=== PATIENT | female | born 1960 | race Caucasian/White ===

== ENCOUNTER 2020-10-26 06:43 | Emergency (ER) | payer MEDICAID ==
--- NOTE | 2020-10-26 06:59 | EDM.PDOC ---
ED HPI GENERAL MEDICAL PROBLEM - General Chief Complaint: Abdominal Pain Stated Complaint: ABDOMINAL PAIN Time Seen by Provider: 10/26/20 06:59 Source of Information: Reports: Patient History Limitations: Reports: No Limitations - History of Present Illness INITIAL COMMENTS - FREE TEXT/NARRATIVE: 60-year-old female presents to the ED after awakening around 0600 hrs. this morning with severe diffuse lower abdominal pain which she described as constant. She states was difficult to walk after getting up out of bed she was hunched over. Emptying her bladder did not seem to improve the pain. She rated the pain as a 10 out of 10 at home. Subsequently pain has dissipated a little bit prior to coming into the ED. She rates the pain currently as a 4 out of 10. She does not feel bloated but is distended. Pain does not radiate anywhere. States it is across her lower abdomen mostly suprapubic. No associated nausea or vomiting. She was fine when she went to bed last night. Of note the patient is wearing an event recorder since Tuesday due to abnormal heartbeats detected in the clinic and by the patient with fluttering in her chest the last week or more. Clinically she was in sinus bradycardia at 58/min with very frequent ectopic beats. She will be placed on the monitor. Plan IV D5 normal saline at 150 mils an hour. Zofran 4 mg IV. Dilaudid 0.5 mg IV for pain relief. Urinalysis to be collected. KUB to be done. Routine labs. Only medication the patient is taking his pantoprazole 40 mg daily which is to started last week. Previous abdominal surgeries out of a bladder sling procedure 20 years ago and a hysterectomy with retention of her ovaries. Onset: Today, Sudden Onset Date: 10/26/20 Onset Time: 06:00 Duration: Minutes:, Improving (Currently rates the pain as a 4 out of 10. It was 10 out of 10 when she awoke from sleep.) Location: Reports: Abdomen (Diffuse lower abdominal pain which he described as constant with a mild colicky component.) Quality: Reports: Ache, Sharp, Stabbing Severity: Severe (Colicky component to the pain 10 out of 10 initially. Now 4 out of 10 in the ED.) Improves with: Reports: Other (Has improved over the last hour.) Worsens with: Reports: Movement (Walking made the pain worse.) Context: Denies: Activity, Exercise, Lifting, Sick Contact, Trauma, Other Associated Symptoms: Reports: Loss of Appetite, Shortness of Breath. Denies: No Other Symptoms, Confusion, Chest Pain, Cough, cough w sputum, Diaphoresis, Fever/Chills, Headaches, Malaise, Nausea/Vomiting, Rash, Seizure, Syncope, Weakness Treatments [employer]: Reports: Other (see below) (None.) Lower Abdomen Pain Score (Numeric/FACES): 5 - Related Data Allergies Allergy/AdvReac Type Severity Reaction Status Date / Time No Known Allergies Allergy Verified 10/26/20 06:57 Home Meds: Home Meds Metoprolol Succinate [Toprol XL] 25 mg PO DAILY #30 tab.er 10/26/20 [Rx] Pantoprazole [ProTONIX] 40 mg PO DAILY 10/26/20 [History] Past Medical History - Past Surgical History Female Surgical History: Reports: Hysterectomy (She believes both ovaries were retained.), Other (See Below) (Bladder sling procedure.) ED ROS GENERAL - Review of Systems Review Of Systems: See Below Constitutional: Reports: Malaise, Weakness, Fatigue, Decreased Appetite. Denies: Fever, Chills HEENT: Reports: No Symptoms Respiratory: Reports: Shortness of Breath. Denies: Wheezing, Pleuritic Chest Pain, Cough, Sputum Cardiovascular: Reports: Chest Pain (Central chest discomfort off and on for the last couple of weeks.), Blood Pressure Problem, Lightheadedness, Palpitations (Doctoring in her chest the last couple of weeks.). Denies: Claudication (Has been running lower than normal.), Dyspnea on Exertion, Edema, Orthopnea Endocrine: Reports: Fatigue GI/Abdominal: Reports: Abdominal Pain (See history of present illness.), Constipation (Tends to be constipated with a bowel movement once every 3 to 4 days.), Decreased Appetite. Denies: Difficulty Swallowing, Distension, Hematemesis, Hematochezia, Melena, Mucous in Stool, Nausea, Stool Incontinence, Vomiting, Other : Reports: No Symptoms, Other (Voiding to this morning did not make the abdominal pain any better or worse.) Musculoskeletal: Reports: No Symptoms Skin: Reports: No Symptoms Neurological: Reports: No Symptoms Psychiatric: Reports: No Symptoms Hematologic/Lymphatic: Reports: No Symptoms Immunologic: Reports: No Symptoms ED EXAM, GI/ABD - Physical Exam Exam: See Below Exam Limited By: No Limitations General Appearance: Alert, WD/WN, No Apparent Distress, Other (Temperature is 36.0. Heart rate 78 and sinus. Respiratory to 16. BP 99/81 with reported O2 sats of 94% room air.) Eyes: Bilateral: Normal Appearance (No scleral icterus or blepharal pallor.) Throat/Mouth: Normal Inspection, Normal Lips, Normal Teeth, Normal Oropharynx Head: Atraumatic, Normocephalic Neck: Normal Inspection, Supple, Non-Tender, Full Range of Motion. No: Carotid Bruit, Lymphadenopathy (L), Lymphadenopathy (R), Thyromegaly Respiratory/Chest: No Respiratory Distress, Lungs Clear, Normal Breath Sounds, No Accessory Muscle Use, Chest Non-Tender Cardiovascular: Normal Peripheral Pulses, No Edema, No Gallop, No Murmur, No Rub, Irregularly Irregular (Frequent ectopic beats every second or third beat is an ectopic beat and the monitor reveals these to be PVCs appear to be unifocal.). No: Bradycardia, Tachycardia GI/Abdominal Exam: Soft, No Organomegaly, No Abnormal Bruit, No Mass, Pelvis Stable, Tender (Mildly tender suprapubically.), Abnormal Bowel Sounds (Bowel sounds are hyperactive throughout all 4 quadrants of the abdomen. Mildly distended and tympany to percussion.) Back Exam: Normal Inspection, Full Range of Motion. No: CVA Tenderness (L), CVA Tenderness (R) Extremities: Normal Inspection, Normal Range of Motion, Non-Tender, No Pedal Edema Neurological: Alert, Oriented, CN II-XII Intact, Normal Cognition Psychiatric: Normal Affect, Normal Mood Skin Exam: Warm, Dry, Intact, Normal Color, No Rash #1 Interpretation EKG Date: 10/26/20 Time: 07:16 Rhythm: NSR Rate (Beats/Min): 75 (Frequent unifocal PVCs) [place]: Normal P-Wave: Enlarged (Left atrial hypertrophy) QRS: Other (RSR prime wave in V1 and V2 consider right ventricular hypertrophy versus normal variant.) ST-T: Depressed (ST segment depression noted in leads II, III and aVF. Consider inferior wall ischemia) QT: Normal EKG Interpretation Comments: Abnormal ECG Course - Vital Signs Last Recorded V/S: Last Vital Signs Temp 36.0 C L 10/26/20 06:51 Pulse 78 10/26/20 08:53 Resp 18 10/26/20 08:53 BP 134/87 10/26/20 08:53 Pulse Ox 100 10/26/20 08:53 - Orders/Labs/Meds Labs: Laboratory Tests 10/26/20 10/26/20 10/26/20 Range/Units 07:00 07:00 07:00 WBC 3.50 L (3.98-10.04) K/mm3 RBC 4.68 (3.98-5.22) M/mm3 Hgb 14.4 (11.2-15.7) gm/dl Hct 43.3 (34.1-44.9) % MCV 92.5 (79.4-94.8) fl MCH 30.8 (25.6-32.2) pg MCHC 33.3 (32.2-35.5) g/dl RDW Std Deviation 42.9 (36.4-46.3) fL Plt Count 143 L (182-369) K/mm3 MPV 11.9 (9.4-12.3) fl Neut % (Auto) 38.3 (34.0-71.1) % Lymph % (Auto) 49.7 (19.3-51.7) % [facility] % (Auto) 8.0 (4.7-12.5) % Eos % (Auto) 3.7 (0.7-5.8) Baso % (Auto) 0.3 (0.1-1.2) % Neut # (Auto) 1.34 L (1.56-6.13) K/mm3 Lymph # (Auto) 1.74 (1.18-3.74) K/mm3 [facility] # (Auto) 0.28 (0.24-0.36) K/mm3 Eos # (Auto) 0.13 (0.04-0.36) K/mm3 Baso # (Auto) 0.01 (0.01-0.08) K/mm3 Sodium 143 (136-145) mEq/L Potassium 3.8 (3.5-5.1) mEq/L Chloride 105 (98-107) mEq/L Carbon Dioxide 30 (21-32) mEq/L Anion Gap 11.8 (5-15) BUN 13 (7-18) mg/dL Creatinine 0.8 (0.55-1.02) mg/dL Est Cr Clr Drug Dosing TNP Estimated GFR (MDRD) > 60 (>60) mL/min BUN/Creatinine Ratio 16.3 (14-18) Glucose 104 H (70-99) mg/dL Calcium 9.0 (8.5-10.1) mg/dL Magnesium 2.2 (1.8-2.4) mg/dL Total Bilirubin 0.5 (0.2-1.0) mg/dL AST 17 (15-37) U/L ALT 28 (14-59) U/L Alkaline Phosphatase 57 (46-116) U/L CK-MB (CK-2) (0-3.6) ng/ml Troponin I < 0.017 (0.00-0.056) ng/mL C-Reactive Protein <0.2 (<1.0) mg/dL NT-Pro-B Natriuret Pep 41 (0-125) pg/mL Total Protein 7.1 (6.4-8.2) g/dl Albumin 4.0 (3.4-5.0) g/dl Globulin 3.1 gm/dL Albumin/Globulin Ratio 1.3 (1-2) TSH 3rd Generation 3.319 (0.358-3.74) uIU/mL Urine Color (Yellow) Urine Appearance (Clear) Urine pH (5.0-8.0) Ur Specific [place] (1.005-1.030) Urine Protein (Negative) Urine Glucose (UA) (Negative) Urine Ketones (Negative) Urine Occult Blood (Negative) Urine Nitrite (Negative) Urine Bilirubin (Negative) Urine Urobilinogen (0.2-1.0) Ur Leukocyte Esterase (Negative) Urine RBC (0-5) /hpf Urine WBC (0-5) /hpf Ur Squamous Epith Cells (0-5) /hpf Urine Bacteria (FEW) /hpf Urine Mucus (FEW) /hpf 10/26/20 10/26/20 Range/Units 07:00 08:10 WBC (3.98-10.04) K/mm3 RBC (3.98-5.22) M/mm3 Hgb (11.2-15.7) gm/dl Hct (34.1-44.9) % MCV (79.4-94.8) fl MCH (25.6-32.2) pg MCHC (32.2-35.5) g/dl RDW Std Deviation (36.4-46.3) fL Plt Count (182-369) K/mm3 MPV (9.4-12.3) fl Neut % (Auto) (34.0-71.1) % Lymph % (Auto) (19.3-51.7) % [facility] % (Auto) (4.7-12.5) % Eos % (Auto) (0.7-5.8) Baso % (Auto) (0.1-1.2) % Neut # (Auto) (1.56-6.13) K/mm3 Lymph # (Auto) (1.18-3.74) K/mm3 [facility] # (Auto) (0.24-0.36) K/mm3 Eos # (Auto) (0.04-0.36) K/mm3 Baso # (Auto) (0.01-0.08) K/mm3 Sodium (136-145) mEq/L Potassium (3.5-5.1) mEq/L Chloride (98-107) mEq/L Carbon Dioxide (21-32) mEq/L Anion Gap (5-15) BUN (7-18) mg/dL Creatinine (0.55-1.02) mg/dL Est Cr Clr Drug Dosing Estimated GFR (MDRD) (>60) mL/min BUN/Creatinine Ratio (14-18) Glucose (70-99) mg/dL Calcium (8.5-10.1) mg/dL Magnesium (1.8-2.4) mg/dL Total Bilirubin (0.2-1.0) mg/dL AST (15-37) U/L ALT (14-59) U/L Alkaline Phosphatase (46-116) U/L CK-MB (CK-2) 0.6 (0-3.6) ng/ml Troponin I (0.00-0.056) ng/mL C-Reactive Protein (<1.0) mg/dL NT-Pro-B Natriuret Pep (0-125) pg/mL Total Protein (6.4-8.2) g/dl Albumin (3.4-5.0) g/dl Globulin gm/dL Albumin/Globulin Ratio (1-2) TSH 3rd Generation (0.358-3.74) uIU/mL Urine Color Yellow (Yellow) Urine Appearance Clear (Clear) Urine pH 7.0 (5.0-8.0) Ur Specific [place] 1.020 (1.005-1.030) Urine Protein Negative (Negative) Urine Glucose (UA) Negative (Negative) Urine Ketones Negative (Negative) Urine Occult Blood Negative (Negative) Urine Nitrite Negative (Negative) Urine Bilirubin Negative (Negative) Urine Urobilinogen 0.2 (0.2-1.0) Ur Leukocyte Esterase Trace H (Negative) Urine RBC 0-5 (0-5) /hpf Urine WBC 0-5 (0-5) /hpf Ur Squamous Epith Cells 0-5 (0-5) /hpf Urine Bacteria Few (FEW) /hpf Urine Mucus Moderate H (FEW) /hpf Meds: Medications Discontinued Medications Generic Name Dose Route Start Last Admin Trade Name Freq PRN Reason Stop Dose Admin Hydromorphone HCl 0.5 mg 10/26/20 07:10 10/26/20 07:41 Hydromorphone 0.5 Mg/0.5 Ml Syringe IVPUSH 10/26/20 07:11 0.5 mg ONETIME ONE Administration Dextrose/Sodium Chloride 1,000 mls @ 150 mls/hr 10/26/20 07:15 10/26/20 07:41 Dextrose 5%-Normal Saline IV 150 mls/hr ASDIRECTED SENA Administration Magnesium Citrate 296 ml 10/26/20 08:58 10/26/20 09:23 Magnesium Citrate Solution 296 Ml Bottle PO 10/26/20 08:59 296 ml ONETIME ONE Administration Metoprolol Succinate 25 mg 10/26/20 08:19 10/26/20 08:34 Metoprolol Succinate 25 Mg Tab.Er PO 10/26/20 08:20 25 mg ONETIME ONE Administration Ondansetron HCl 4 mg 10/26/20 07:10 10/26/20 07:42 Ondansetron 4 Mg/2 Ml Sdv IVPUSH 10/26/20 07:11 4 mg ONETIME ONE Administration - Radiology Interpretation Free Text/Narrative:: 60-year-old female presents to the ED with diffuse lower abdominal pain that awoke her from sleep at around 0600 hrs. Pain did not improve after emptying her bladder. Walking was difficult. Pain was a 10 out of 10 at home with no radiation to her back. It has now slowly improved to rated as 4 out of 10. Exam reveals mild tympany throughout the abdomen. Bowel sounds are extremely active in all 4 quadrants. Palpable left hemicolon. Patient is on a Holter monitor due to feeling palpitations and chest pain rating up into her neck and throat the last week or so. Exam reveals her to have very frequent PVCs which appear to be unifocal. They are coming every third or fourth beat. ECG shows ST segment depression in leads II, III and aVF combined with inferior wall ischemia. Cardiac work-up will be done as well as routine labs. This includes a urinalysis. An x-ray of the abdomen to be obtained. Patient was started on IV D5 normal saline at 150 mils per hour. She was given Zofran 4 mg IV with Dilaudid 0.5 mg IV. - Re-Assessments/Exams Free Text/Narrative Re-Assessment/Exam: 10/26/20 07:39 patient continues to have frequent PVCs at this time in a bigeminal fashion. 10/26/20 08:11 KUB reveals significant constipation with almost the entire colon filled with stool particularly the rectal vault. I have discussed the findings with the patient. Plan will be to proceed with a Fleet enema to provide initial relief of constipation. She will be sent home with magnesium citrate or Citroma to take 8 ounces later this morning with 6 ounces of juice to provide bowel cleanse. In regards to her frequent PVCs and symptoms with pressure in her chest and shortness of breath she will you may well benefit from a low-dose of metoprolol succinate once daily. This will be dependent on heart rate as she tends have a heart rate in the mid 60s and a blood pressure anywhere from 99-134 systolic.Will start her on Metoprololol succinate 25mg once daily in the am. 10/26/20 08:28 Labs reveal a mild leukopenia with a white count of 3.50 with 38.3% neutrophils and 50% lymphocytes suggesting a underlying viral infection. Hemoglobin is 14.4 with a platelet count low normal at 143,000. Sodium 143 with a potassium of 3.8. Chloride 105 with a bicarb of 30. Anion gap is 11.8. BUN is 13 with a creatinine of 0.8 and a GFR greater than 60. Glucose is 104. Calcium is 9.0. Magnesium is 2.2. Liver function normal. CK-MB fraction is 0.6 with a troponin I of less than 0.017. C-reactive protein less than 0.2. BNP 41. Total protein is 7.1 with an albumin fraction of 4.0. TSH is 3.32--normal. Urinalysis came back showing a trace of leukocyte esterase. Micro is pending 10/26/20 08:55 nurses report she did not get much hard stool out , only colored water. She was not able to retain a good deal of the enema. Therefore I will not pursue a soapsuds enema. I will simply place her on magnesium citrate taking 10 ounces today to get relief of constipation. Will advise MiraLAX p owder 17 g once daily prevent similar occurrence. Departure - Departure Time of Disposition: 08:55 Disposition: Home, Self-Care 01 Condition: Fair Clinical Impression: Constipation by delayed colonic transit, Frequent unifocal PVCs Abdominal pain Qualifiers: Abdominal location: lower abdomen, unspecified Qualified Code(s): R10.30 - Lower abdominal pain, unspecified - Discharge Information *PRESCRIPTION DRUG MONITORING PROGRAM REVIEWED*: Not Applicable *COPY OF PRESCRIPTION DRUG MONITORING REPORT IN PATIENT EMILE: Not Applicable Prescriptions: Metoprolol Succinate [Toprol XL] 25 mg PO DAILY #30 tab.er Instructions: Constipation, Adult Referrals: Jaleesa Hoffman MD [Primary Care Provider] - Forms: ED Department Discharge Additional Instructions: Evaluation in the emergency room today in regards to diffuse lower abdominal pain that was almost incapacitating that woke her up from sleep around 0600 hrs. this morning. Exam revealed bowel sounds very active in all 4 quadrants compatible with bowel that is working hard against an obstruction. X-ray of the abdomen reveals the obstruction is stool almost completely filling the entire 4 and half feet of colon. Minimal results obtained in the ED with a Fleet enema. Therefore take magnesium citrate 10 ounces when you get home mixed with 6 to 7 ounces of juice of choice. This will start to work in 1 to 2 hours and bowels are usually move 3-4 times often ending and some degree of diarrhea. I would suggest starting MiraLAX powder 17 g or 1 scoop daily to prevent constipation from occurring. This has no taste and does not cause any cramping or make the bowel dependent on a laxative such as other medication to do. Second problem was very frequent premature ventricular contractions coming from the bottom of the heart. They are coming almost every second or third beat at times while in the ED and are causing her palpitations and chest discomfort. It is therefore my suggestion that you take metoprolol succinate 25 mg once daily at bedtime. Your first tablet was given in the ED this morning but after picking the medication up from the pharmacy tomorrow take 1 tablet every night at bedtime. The medication will lower your heart rate and also your blood pressure. Therefore only time will tell whether you can tolerate this medication. It should start to help reduce the skips or extra beats in your heart within the next 2 -3 days. Sepsis Event Note (ED) - Evaluation Sepsis Screening Result: No Definite Risk - Focused Exam Vital Signs: Vital Signs Pulse Pulse Resp BP BP Pulse Ox 10/26/20 08:53 78 18 134/87 100 10/26/20 08:34 63 120/87
[2020-10-26] MEDS ORDERED: HYDROmorphone 0.5 MG/0.5 ML Syringe IVPUSH ONE (07:10)
[2020-10-26] MEDS ORDERED: Ondansetron 4 MG/2 ML SDV IVPUSH ONE (07:10)
[2020-10-26] MEDS ORDERED: Dextrose 5%-0.9% NaCl 1,000 ML IV SCH (07:15)
[2020-10-26] MEDS ORDERED: Metoprolol Succinate 25 MG Tab.ER PO ONE (08:19)
[2020-10-26] MEDS ORDERED: Magnesium Citrate Solution 296 ML Bottle PO ONE (08:58)
--- NOTE | 2020-10-26 10:33 | CR ---
Abdomen: Supine view of the abdomen was obtained. Comparison: Prior abdominal imaging is available. Surgical clips appear to be present within the upper right abdomen presumably from previous cholecystectomy. Mild increased stool is noted throughout the colon. Bowel gas pattern is otherwise unremarkable. Bony structures are within normal limits. Impression: 1. Increased stool within the colon. 2. Possible previous cholecystectomy. Diagnostic code #2
== END 2020-10-26 09:36 | disposition home or self-care (01) ==
LOC: JD.ED 06:43
DX: K59.01 Slow transit constipation (principal); I49.3 Ventricular premature depolarization; Z79.899 Other long term (current) drug therapy
CPT/HCPCS: 36415; 74018; 80053; 81001; 82553; 83735; 83880; 84443; 84484; 85025; 86140; 93005; 96374; 96375; 99284; A9270; J1170; J2405; J7042; 93010

== ENCOUNTER 2020-10-28 15:43 | Emergency (ER) | payer MEDICAID ==
[2020-10-28] MEDS ORDERED: Ondansetron 4 MG/2 ML SDV IVPUSH ONE (16:25)
[2020-10-28] MEDS ORDERED: Sodium Chloride 0.9% 10 ML Syringe FLUSH PRN (16:26)
[2020-10-28] MEDS ORDERED: Sodium Chloride 0.9% 1,000 ML IV SCH (16:30)
--- NOTE | 2020-10-28 16:48 | EDM.PDOC ---
ED HPI GENERAL MEDICAL PROBLEM - General Chief Complaint: Abdominal Pain Stated Complaint: ABDOMINAL PAIN Time Seen by Provider: 10/28/20 15:52 Source of Information: Reports: Patient, Old Records (Previous visit from Tuesday.), RN Notes Reviewed History Limitations: Reports: No Limitations - History of Present Illness INITIAL COMMENTS - FREE TEXT/NARRATIVE: Patient is a 60-year-old female who presents to the ER for her ongoing abdominal pain. She was evaluated in this ER on Tuesday, and was diagnosed with severe constipation. She was sent home with a bottle of magnesium citrate, she did take this as directed had a few bowel movements yesterday, and 1 this morning however she is still having abdominal pain. She notes that this seems to kind of radiate up into her chest, her generalized abdomen, and just feels tired and lethargic. She is also complaining of some low pelvic pain, that seems to radiate down her legs and into her back. She was also found to have frequent PVCs and was started on metoprolol for this, and states that she has been taking this as prescribed and it seems to be helping. As observed she has not had any PVCs while I was interviewing her for her history. Notes that she does have a regular care provider, that started her on GERD medications on Tuesday and she states that the upper abdomen/chest discomfort is getting better after starting that medication. She was sent home with a Holter monitor, and is also scheduled for an echocardiogram on November 05. She has had no fevers or chills, notes that she was sweaty earlier but did take her temperature and she was not febrile. Having no nausea/vomiting/diarrhea. She denies any abdomen surgeries other than a hysterectomy and still retains her ovaries. Also states that she had a blad alma suspension performed. Patient is concerned because of the ongoing pain, and this now being into her low pelvis that this could be something related to her ovaries. Bilateral Lower Pelvic Pain Score (Numeric/FACES): 10 - Related Data Allergies Allergy/AdvReac Type Severity Reaction Status Date / Time No Known Allergies Allergy Verified 10/28/20 16:14 Home Meds: Home Meds Metoprolol Succinate [Toprol XL] 25 mg PO DAILY #30 tab.er 10/26/20 [Rx] Pantoprazole [ProTONIX] 40 mg PO DAILY 10/26/20 [History] Dicyclomine [Bentyl] 20 mg PO TID #15 tab 10/28/20 [Rx] Past Medical History - Past Health History Medical/Surgical History: Denies Medical/Surgical History Cardiovascular History: Reports: Other (See Below) Other Cardiovascular History: palpitation Gastrointestinal History: Reports: GERD - Past Surgical History Female Surgical History: Reports: Hysterectomy, Other (See Below) Other Female Surgeries/Procedures: bladder sling Social & Family History - Family History Neurological: Reports: Dementia, Parkinson's Oncologic: Reports: Breast - Tobacco Use Tobacco Use Status *Q: Never Tobacco User - Caffeine Use Caffeine Use: Reports: Coffee, Soda - Recreational Drug Use Recreational Drug Use: No ED ROS GENERAL - Review of Systems Review Of Systems: Comprehensive ROS is negative, except as noted in HPI. ED EXAM, GI/ABD - Physical Exam Exam: See Below Exam Limited By: No Limitations General Appearance: Alert, WD/WN, No Apparent Distress Respiratory/Chest: No Respiratory Distress, Lungs Clear, Normal Breath Sounds, No Accessory Muscle Use, Chest Non-Tender Cardiovascular: Normal Peripheral Pulses, Regular Rate, Rhythm, No Edema GI/Abdominal Exam: Normal Bowel Sounds, Soft, No Distention, No Mass, Tender (generalized, but seems to be worse in low abd/pelvic region, also tender over epigastrium) Extremities: Normal Inspection, Normal Capillary Refill Neurological: Alert, Oriented, Normal Cognition, No Motor/Sensory Deficits Psychiatric: Normal Affect, Normal Mood Skin Exam: Warm, Dry, Intact, Normal Color, No Rash Course - Vital Signs Last Recorded V/S: Last Vital Signs Temp Pulse 67 10/28/20 16:09 Resp 15 10/28/20 16:09 BP 139/84 10/28/20 16:09 Pulse Ox 99 10/28/20 16:09 - Orders/Labs/Meds Orders: Active Orders 24 hr Category Date Time Status Peripheral IV Care [RC] . DIRECTED Care 10/28/20 16:27 Active Sodium Chloride 0.9% [Normal Saline] 1,000 ml Med 10/28/20 16:30 Active IV ASDIRECTED Sodium Chloride 0.9% [Saline Flush] Med 10/28/20 18:15 Active 10 ml FLUSH ASDIRECTED Sodium Chloride 0.9% [Saline Flush] Med 10/28/20 16:26 Active 10 ml FLUSH ASDIRECTED PRN Peripheral IV Insertion Adult [OM.PC] Routine Oth 10/28/20 16:26 Ordered Medication Orders Sodium Chloride (Normal Saline) 1,000 mls @ 999 mls/hr IV ASDIRECTED SENA Last Admin: 10/28/20 16:39 Dose: 999 mls/hr Documented by: VERA Sodium Chloride (Sodium Chloride 0.9% 10 Ml Syringe) 10 ml FLUSH ASDIRECTED PRN PRN Reason: Keep Vein Open Last Admin: 10/28/20 16:38 Dose: 10 ml Documented by: VERA Sodium Chloride (Sodium Chloride 0.9% 10 Ml Syringe) 10 ml FLUSH ASDIRECTED SENA Last Admin: 10/28/20 18:24 Dose: 10 ml Documented by: RONDA Labs: Laboratory Tests 10/28/20 10/28/20 10/28/20 Range/Units 16:30 16:30 17:20 WBC 4.79 (3.98-10.04) K/mm3 RBC 4.26 (3.98-5.22) M/mm3 Hgb 13.2 (11.2-15.7) gm/dl Hct 39.5 (34.1-44.9) % MCV 92.7 (79.4-94.8) fl MCH 31.0 (25.6-32.2) pg MCHC 33.4 (32.2-35.5) g/dl RDW Std Deviation 42.1 (36.4-46.3) fL Plt Count 131 L (182-369) K/mm3 MPV 12.0 (9.4-12.3) fl Neut % (Auto) 61.1 (34.0-71.1) % Lymph % (Auto) 30.7 (19.3-51.7) % [place] % (Auto) 6.5 (4.7-12.5) % Eos % (Auto) 1.3 (0.7-5.8) Baso % (Auto) 0.2 (0.1-1.2) % Neut # (Auto) 2.93 (1.56-6.13) K/mm3 Lymph # (Auto) 1.47 (1.18-3.74) K/mm3 [place] # (Auto) 0.31 (0.24-0.36) K/mm3 Eos # (Auto) 0.06 (0.04-0.36) K/mm3 Baso # (Auto) 0.01 (0.01-0.08) K/mm3 Sodium 142 (136-145) mEq/L Potassium 4.0 (3.5-5.1) mEq/L Chloride 105 (98-107) mEq/L Carbon Dioxide 29 (21-32) mEq/L Anion Gap 12.0 (5-15) BUN 9 (7-18) mg/dL Creatinine 0.7 (0.55-1.02) mg/dL Est Cr Clr Drug Dosing 83.11 mL/min Estimated GFR (MDRD) > 60 (>60) mL/min BUN/Creatinine Ratio 12.9 L (14-18) Glucose 96 (70-99) mg/dL Calcium 8.8 (8.5-10.1) mg/dL Total Bilirubin 0.4 (0.2-1.0) mg/dL AST 14 L (15-37) U/L ALT 26 (14-59) U/L Alkaline Phosphatase 54 (46-116) U/L Total Protein 7.1 (6.4-8.2) g/dl Albumin 4.1 (3.4-5.0) g/dl Globulin 3.0 gm/dL Albumin/Globulin Ratio 1.4 (1-2) Lipase 149 (73-393) U/L Urine Color Yellow (Yellow) Urine Appearance Clear (Clear) Urine pH 7.0 (5.0-8.0) Ur Specific Indian 1.015 (1.005-1.030) Urine Protein Negative (Negative) Urine Glucose (UA) Negative (Negative) Urine Ketones Negative (Negative) Urine Occult Blood Negative (Negative) Urine Nitrite Negative (Negative) Urine Bilirubin Negative (Negative) Urine Urobilinogen 0.2 (0.2-1.0) Ur Leukocyte Esterase Trace H (Negative) Urine RBC 0-5 (0-5) /hpf Urine WBC 0-5 (0-5) /hpf Ur Squamous Epith Cells 0-5 (0-5) /hpf Urine Bacteria Moderate H (FEW) /hpf Urine Mucus Few (FEW) /hpf Meds: Medications Generic Name Dose Route Start Last Admin Trade Name Freq PRN Reason Stop Dose Admin Sodium Chloride 1,000 mls @ 999 mls/hr 10/28/20 16:30 10/28/20 16:39 Normal Saline IV 999 mls/hr ASDIRECTED SENA Administration Sodium Chloride 10 ml 10/28/20 16:26 10/28/20 16:38 Sodium Chloride 0.9% 10 Ml Syringe FLUSH 10 ml ASDIRECTED PRN Administration Keep Vein Open Sodium Chloride 10 ml 10/28/20 18:15 10/28/20 18:24 Sodium Chloride 0.9% 10 Ml Syringe FLUSH 10 ml ASDIRECTED SENA Administration Discontinued Medications Generic Name Dose Route Start Last Admin Trade Name Chris PRN Reason Stop Dose Admin Diatrizoate Meglum/Diatrizoate Sod 120 ml 10/28/20 18:14 10/28/20 18:23 Diatrizoate Meglumine/Diatrizoate Sodium 37% 120 Ml Bottle PO 10/28/20 18:15 45 ml ONETIME ONE Administration Iopamidol 100 ml 10/28/20 18:14 10/28/20 18:23 Iopamidol 612 Mg/Ml 100 Ml Bottle IVPUSH 10/28/20 18:15 100 ml ONETIME ONE Administration Ketorolac Tromethamine 30 mg 10/28/20 19:04 Ketorolac 30 Mg/Ml Sdv IVPUSH 10/28/20 19:05 ONETIME ONE Ondansetron HCl 4 mg 10/28/20 16:25 10/28/20 16:36 Ondansetron 4 Mg/2 Ml Sdv IVPUSH 10/28/20 16:26 4 mg ONETIME ONE Administration - Re-Assessments/Exams Free Text/Narrative Re-Assessment/Exam: 10/28/20 16:48 Patient presents to the ER for ongoing abdomen pain we will repeat labs get IV started and do a CT for further evaluation. 10/28/20 19:05 Laboratory evaluation demonstrates no focal abnormalities. CT did demonstrate one calcified gallstone within the gallbladder. To minimal cyst within the right ovary believed to be within normal limits and measuring up to 2 cm. And mild increased stool within the colon. I did go over all of these findings with the patient, states that she is having a slight generalized headache, still having some generalized abdominal pain. I have ordered 30 mg IV Toradol for this. We will trial her on dicyclomine, the oral contrast should provide a laxative type effect, she has not started stool softeners, and I did recommend that she does start these. She verbalized understanding. I will have her follow-up with a general surgeon for the gallbladder issue and her [facility] for the ovarian cyst issues. Departure - Departure Time of Disposition: 19:06 Disposition: Home, Self-Care 01 Condition: Good Clinical Impression: Constipation Qualifiers: Constipation type: other constipation type Qualified Code(s): K59.09 - Other constipation Ovarian cyst Qualifiers: Laterality: right Qualified Code(s): N83.201 - Unspecified ovarian cyst, right side Gallstone Qualifiers: Cholecystitis presence: without cholecystitis Biliary obstruction: without biliary obstruction Qualified Code(s): K80.20 - Calculus of gallbladder without cholecystitis without obstruction - Discharge Information *PRESCRIPTION DRUG MONITORING PROGRAM REVIEWED*: No *COPY OF PRESCRIPTION DRUG MONITORING REPORT IN PATIENT EMILE: No Prescriptions: Dicyclomine [Bentyl] 20 mg PO TID #15 tab Instructions: Constipation, Adult, [id number], Cholelithiasis, [id number], Ovarian Cyst, [id number] Forms: ED Department Discharge Additional Instructions: You were evaluated in the ER today for your generalized abdomen pain. Repeat lab work demonstrated no focal abnormalities, you did have a CT performed at today's visit which revealed a single gallstone within your gallbladder, 2 small ovarian cyst on your right ovary, and constipation once again. The oral contrast that you received at today's visit should provide somewhat of a laxative effect, you may repeat the bottle of magnesium citrate, you can get this at any pharmacy or local retailer. Highly and strongly recommend you start a stool softener like Dulcolax, Colace, or MiraLAX, and increase your oral fluid hydration to help relieve the constipation. You have been given a prescription for dicyclomine, which is for abdomen cramping you may take 1 tablet up to 3 times daily for abdomen cramping. This medication was electronically sent to the [facility] located near [facility]. As for the gallstone, you should follow up with general surgery, for further evaluation you can call our clinic at [phone] and obtain an appoint with Dr. Grider for further evaluation. As for the ovarian cyst you will need to follow-up with your [facility] of choice, again if you do not have an OB provider, our clinic number [phone], and the [facility] number is [phone]. You may also use Tylenol or ibuprofen every 6 hours as needed for further pain or discomfort. Please return to the ER at any time if symptoms change or worsen. Sepsis Event Note (ED) - Evaluation Sepsis Screening Result: No Definite Risk - Focused Exam Vital Signs: Vital Signs Pulse Resp BP Pulse Ox 10/28/20 16:09 67 15 139/84 99 - My Orders Last 24 Hours: My Active Orders 10/28/20 16:26 Sodium Chloride 0.9% [Saline Flush] 10 ml FLUSH ASDIRECTED PRN Peripheral IV Insertion Adult [OM.PC] Routine 10/28/20 16:27 Peripheral IV Care [RC] . DIRECTED 10/28/20 16:30 Sodium Chloride 0.9% [Normal Saline] 1,000 ml IV ASDIRECTED 10/28/20 18:15 Sodium Chloride 0.9% [Saline Flush] 10 ml FLUSH ASDIRECTED - Assessment/Plan Last 24 Hours: My Active Orders 10/28/20 16:26 Sodium Chloride 0.9% [Saline Flush] 10 ml FLUSH ASDIRECTED PRN Peripheral IV Insertion Adult [OM.PC] Routine 10/28/20 16:27 Peripheral IV Care [RC] . DIRECTED 10/28/20 16:30 Sodium Chloride 0.9% [Normal Saline] 1,000 ml IV ASDIRECTED 10/28/20 18:15 Sodium Chloride 0.9% [Saline Flush] 10 ml FLUSH ASDIRECTED
[2020-10-28] MEDS ORDERED: Iopamidol 612 MG/ML 100 ML Bottle IVPUSH ONE (18:14)
[2020-10-28] MEDS ORDERED: Diatrizoate Meglumine/Diatrizoate Sodium 37% 120 ML Bottle PO ONE (18:14)
[2020-10-28] MEDS ORDERED: Sodium Chloride 0.9% 10 ML Syringe FLUSH SCH (18:15)
--- NOTE | 2020-10-28 18:48 | CT ---
CT abdomen and pelvis Technique: Multiple axial sections were obtained from above the dome of the diaphragm inferiorly through the pubic symphysis. Intravenous and oral contrast was utilized. Delayed images were also obtained through the bladder. Reconstructed coronal and sagittal images were obtained. Comparison: Prior abdominal x-ray performed earlier on the same day (7:51 AM). Findings: Bilateral breast prosthesis are partially seen. Visualized lung bases show nothing acute. Liver shows no focal parenchymal abnormality. Spleen size is normal. Calcified gallstone is seen within the gallbladder. Adrenal glands show no nodule. Pancreas shows no abnormality. Kidneys show symmetric contrast enhancement. No hydronephrosis or mass is seen. Abdominal aorta shows atherosclerotic calcification with no aneurysm. No retroperitoneal adenopathy is noted. Appendix is not definitely visualized. Mild increased stool is seen within the colon. Two small right ovarian cysts are noted measuring up to 2.0 cm which are felt to be incidental. No pelvic mass or adenopathy is seen. Delayed images show contrast within the distal ureters and within the bladder. Bone window settings were reviewed which show minimal scattered degenerative change. No acute osseous abnormality is appreciated. Impression: 1. Mild increased stool within the colon. 2. Two minimal cysts within the right ovary believed to be within normal limits measuring up to 2.0 cm. 3. Single small calcified gallstone within the gallbladder. 4. No additional abnormality is seen. Diagnostic code #2
[2020-10-28] MEDS ORDERED: Ketorolac 30 MG/ML SDV IVPUSH ONE (19:04)
== END 2020-10-28 19:30 | disposition home or self-care (01) ==
LOC: JD.ED 15:43
DX: K80.20 Calculus of gallbladder without cholecystitis without obstruction (principal); K59.09 Other constipation; N83.201 Unspecified ovarian cyst, right side; K21.9 Gastro-esophageal reflux disease without esophagitis; Z79.899 Other long term (current) drug therapy
CPT/HCPCS: 36415; 74177; 80053; 81001; 83690; 85025; 96374; 96375; 99284; J1885; J2405; J7030; Q9963; Q9967

== ENCOUNTER 2020-10-31 12:27 | Emergency (ER) | payer MEDICAID ==
--- NOTE | 2020-10-31 13:13 | EDM.PDOC ---
ED HPI GENERAL MEDICAL PROBLEM - General Chief Complaint: Abdominal Pain Stated Complaint: GERD Time Seen by Provider: 10/31/20 12:50 Source of Information: Reports: Patient History Limitations: Reports: No Limitations - History of Present Illness INITIAL COMMENTS - FREE TEXT/NARRATIVE: 60-year-old female presents to the ED with increased trouble swallowing. She has been aware of heartburn and reflux for many years but worse this last several weeks. She was started on pantoprazole 40 mg daily about 10 days ago. At present she is having trouble even swallowing water. She is aware of recurrent spasms of her esophagus. She does not believe that any pill got stuck in her to call us pill esophagitis. She does not eat meat and therefore no unlikely to have a fishbone or toothpick or anything irritating her food pipe. She is aware pressure discomfort even up into the sternal notch and anterior throat. There is also a component of pleuritic chest pain when she breathes deeply. She has been complaining of retrosternal chest pressure discomfort for the last week to 10 days. We worked her up cardiac sanchez twice and no cardiac issues were identified other than frequent PVCs. She was placed on metoprolol succinate 25 mg daily which is worked well to bring the PVCs under control. She is no longer aware of them. She did take 1 Pepcid yesterday with transient imp rovement in her symptoms. Onset: Gradual Onset Date: 10/23/20 (For night increased heartburn and perhaps mild reflux present for the last week to 10 days. Seems to be worsening in spite of using Protonix daily.) Duration: Day(s):, Getting Worse, Waxing/Waning Location: Reports: Chest (Present most of the day. Central chest discomfort with radiation up into her throat neck.) Quality: Reports: Other (Spastic type pain when attempts to swallow but constant pain in her retrosternal chest rating up into her suprasternal area of her anterior throat.) Severity: Severe Improves with: Reports: None Worsens with: Reports: Other (Any attempt to swallow even water) Context: Denies: Activity ( makes it hurt.), Exercise, Lifting, Sick Contact, Trauma, Other Associated Symptoms: Reports: Other (Deep breathing will cause a pleuritic type pain that seems to originate from the central chest and radiate outwards.). Denies: No Other Symptoms, Confusion, Chest Pain, Cough, cough w sputum, Diaphoresis, Fever/Chills, Headaches, Loss of Appetite, Malaise, Nausea/Vomiting, Rash, Seizure, Shortness of Breath, Syncope, Weakness Treatments [employer]: Reports: Other (see below) (Pepcid 20 mg once daily starting yesterday.) - Related Data Allergies Allergy/AdvReac Type Severity Reaction Status Date / Time No Known Allergies Allergy Verified 10/31/20 12:36 Home Meds: Home Meds Metoprolol Succinate [Toprol XL] 25 mg PO DAILY #30 tab.er 10/26/20 [Rx] Pantoprazole [ProTONIX] 40 mg PO DAILY 10/26/20 [History] Dicyclomine [Bentyl] 20 mg PO TID #15 tab 10/28/20 [Rx] Sucralfate [Carafate] 1 gm PO QID #200 ml 10/31/20 [Rx] Past Medical History - Past Health History Medical/Surgical History: Denies Medical/Surgical History Cardiovascular History: Reports: Other (See Below) Other Cardiovascular History: palpitation Gastrointestinal History: Reports: GERD - Past Surgical History Female Surgical History: Reports: Hysterectomy, Other (See Below) Other Female Surgeries/Procedures: bladder sling Social & Family History - Family History Neurological: Reports: Dementia, Parkinson's Oncologic: Reports: Breast - Tobacco Use Tobacco Use Status *Q: Never Tobacco User Second Hand Smoke Exposure: No - Caffeine Use Caffeine Use: Reports: None - Recreational Drug Use Recreational Drug Use: No - Living Situation & Occupation Living situation: Reports: Single Occupation: Unemployed [employer] [facility] - Review of Systems Review Of Systems: See Below Constitutional: Reports: Decreased Appetite. Denies: Fever, Chills, Malaise, Weakness, Fatigue, Weight Loss HEENT: Reports: Throat Pain (Throat pressure discomfort radiating up from her ep igastrium.) Respiratory: Reports: Pleuritic Chest Pain (Some pleuritic chest pain with deep breathing.). Denies: Shortness of Breath, Wheezing Cardiovascular: Reports: Chest Pain, Lightheadedness (Did have a bout of blood lightheadedness yesterday when she bent over to), Palpitations (Was having problems with palpitations improved since starting metoprolol succinate 25 mg daily.). Denies: Blood Pressure Problem (Retrosternal chest discomfort for the last week to 10 days.), Claudication, Dyspnea on Exertion, Edema ( get dog food for her dog. She had to sit down for period of time), Orthopnea Endocrine: Reports: Fatigue GI/Abdominal: Reports: Abdominal Pain (Was having diffuse abdominal pain secondary to constipation. She did have some diarrhea yesterday x3 suggesting she got rid of a good portion of the stool.) : Reports: No Symptoms Musculoskeletal: Reports: No Symptoms Skin: Reports: No Symptoms Neurological: Reports: No Symptoms Psychiatric: Reports: No Symptoms Hematologic/Lymphatic: Reports: No Symptoms Immunologic: Reports: No Symptoms ED EXAM, GI/ABD - Physical Exam Exam: See Below Exam Limited By: No Limitations General Appearance: Alert, WD/WN, No Apparent Distress, Other (Temperature is 36.5. Heart rate 72 and sinus. Respiratory is 20 with O2 sats of 100% room air BP 133/94) Eyes: Bilateral: Normal Appearance Throat/Mouth: Normal Inspection (No scleral icterus or blepharal pallor.), Normal Lips, Normal Oropharynx Head: Atraumatic, Normocephalic Neck: Normal Inspection, Supple, Non-Tender, Full Range of Motion. No: Lymphadenopathy (L), Lymphadenopathy (R) Respiratory/Chest: No Respiratory Distress, Lungs Clear, Normal Breath Sounds, No Accessory Muscle Use Cardiovascular: Normal Peripheral Pulses, Regular Rate, Rhythm, No Edema, No Gallop, No Murmur, No Rub GI/Abdominal Exam: Normal Bowel Sounds, Soft, No Organomegaly, No Distention, Tender (Tenderness in the epigastrium on deep palpation.) Extremities: Normal Inspection, Normal Range of Motion, Non-Tender, No Pedal Edema Neurological: Alert, Oriented, CN II-XII Intact, Normal Cognition Psychiatric: Anxious Skin Exam: Warm, Dry, Intact, Normal Color, No Rash Course - Vital Signs Last Recorded V/S: Last Vital Signs Temp 36.5 C 10/31/20 12:34 Pulse 72 10/31/20 12:34 Resp 20 10/31/20 12:34 BP 133/94 H 10/31/20 12:34 Pulse Ox 100 10/31/20 12:34 - Orders/Labs/Meds Orders: Active Orders 24 hr Category Date Time Status Dextrose 5%-Lactated Ringers 1,000 ml Med 10/31/20 13:15 Active IV ASDIRECTED Medication Orders Dextrose/Lactated Ringer's (Dextrose 5%-Lactated Ringers) 1,000 mls @ 999 mls/hr IV ASDIRECTED SENA Last Admin: 10/31/20 13:20 Dose: 999 mls/hr Documented by: SAMINA Labs: Laboratory Tests 10/31/20 10/31/20 10/31/20 Range/Units 13:30 13:30 13:30 WBC 4.80 (3.98-10.04) K/mm3 RBC 4.39 (3.98-5.22) M/mm3 Hgb 13.5 (11.2-15.7) gm/dl Hct 40.8 (34.1-44.9) % MCV 92.9 (79.4-94.8) fl MCH 30.8 (25.6-32.2) pg MCHC 33.1 (32.2-35.5) g/dl RDW Std Deviation 42.5 (36.4-46.3) fL Plt Count 145 L (182-369) K/mm3 MPV 12.1 (9.4-12.3) fl Neut % (Auto) 67.0 (34.0-71.1) % Lymph % (Auto) 24.6 (19.3-51.7) % [place] % (Auto) 6.9 (4.7-12.5) % Eos % (Auto) 1.3 (0.7-5.8) Baso % (Auto) 0.2 (0.1-1.2) % Neut # (Auto) 3.22 (1.56-6.13) K/mm3 Lymph # (Auto) 1.18 (1.18-3.74) K/mm3 [place] # (Auto) 0.33 (0.24-0.36) K/mm3 Eos # (Auto) 0.06 (0.04-0.36) K/mm3 Baso # (Auto) 0.01 (0.01-0.08) K/mm3 D-Dimer, Quantitative 0.21 (0.19-0.50) mg/L Sodium 142 (136-145) mEq/L Potassium 4.4 (3.5-5.1) mEq/L Chloride 102 (98-107) mEq/L Carbon Dioxide 29 (21-32) mEq/L Anion Gap 15.4 H (5-15) BUN 12 (7-18) mg/dL Creatinine 0.9 (0.55-1.02) mg/dL Est Cr Clr Drug Dosing 64.26 mL/min Estimated GFR (MDRD) > 60 (>60) mL/min BUN/Creatinine Ratio 13.3 L (14-18) Glucose 111 H (70-99) mg/dL Calcium 9.3 (8.5-10.1) mg/dL Total Bilirubin 0.4 (0.2-1.0) mg/dL AST 17 (15-37) U/L ALT 31 (14-59) U/L Alkaline Phosphatase 60 (46-116) U/L Troponin I (0.00-0.056) ng/mL C-Reactive Protein <0.2 (<1.0) mg/dL Total Protein 7.6 (6.4-8.2) g/dl Albumin 4.2 (3.4-5.0) g/dl Globulin 3.4 gm/dL Albumin/Globulin Ratio 1.2 (1-2) 10/31/20 Range/Units 13:30 WBC (3.98-10.04) K/mm3 RBC (3.98-5.22) M/mm3 Hgb (11.2-15.7) gm/dl Hct (34.1-44.9) % MCV (79.4-94.8) fl MCH (25.6-32.2) pg MCHC (32.2-35.5) g/dl RDW Std Deviation (36.4-46.3) fL Plt Count (182-369) K/mm3 MPV (9.4-12.3) fl Neut % (Auto) (34.0-71.1) % Lymph % (Auto) (19.3-51.7) % [place] % (Auto) (4.7-12.5) % Eos % (Auto) (0.7-5.8) Baso % (Auto) (0.1-1.2) % Neut # (Auto) (1.56-6.13) K/mm3 Lymph # (Auto) (1.18-3.74) K/mm3 [place] # (Auto) (0.24-0.36) K/mm3 Eos # (Auto) (0.04-0.36) K/mm3 Baso # (Auto) (0.01-0.08) K/mm3 D-Dimer, Quantitative (0.19-0.50) mg/L Sodium (136-145) mEq/L Potassium (3.5-5.1) mEq/L Chloride (98-107) mEq/L Carbon Dioxide (21-32) mEq/L Anion Gap (5-15) BUN (7-18) mg/dL Creatinine (0.55-1.02) mg/dL Est Cr Clr Drug Dosing mL/min Estimated GFR (MDRD) (>60) mL/min BUN/Creatinine Ratio (14-18) Glucose (70-99) mg/dL Calcium (8.5-10.1) mg/dL Total Bilirubin (0.2-1.0) mg/dL AST (15-37) U/L ALT (14-59) U/L Alkaline Phosphatase (46-116) U/L Troponin I < 0.017 (0.00-0.056) ng/mL C-Reactive Protein (<1.0) mg/dL Total Protein (6.4-8.2) g/dl Albumin (3.4-5.0) g/dl Globulin gm/dL Albumin/Globulin Ratio (1-2) Meds: Medications Generic Name Dose Route Start Last Admin Trade Name Freq PRN Reason Stop Dose Admin Dextrose/Lactated Ringer's 1,000 mls @ 999 mls/hr 10/31/20 13:15 10/31/20 13:20 Dextrose 5%-Lactated Ringers IV 999 mls/hr ASDIRECTED SENA Administration Discontinued Medications Generic Name Dose Route Start Last Admin Trade Name Freq PRN Reason Stop Dose Admin Barium Sulfate 100 ml 10/31/20 13:24 10/31/20 14:29 Barium Sulfate W/V 2.1% Oral Susp 450 Ml Bottle PO 10/31/20 13:25 450 ml ONETIME ONE Administration Barium Sulfate 340 gm 10/31/20 14:23 10/31/20 14:29 Barium Sulfate 98% Powder For Susp 340 Gm Bottle PO 10/31/20 14:24 340 gm ONETIME ONE Administration - Radiology Interpretation Free Text/Narrative:: 60-year-old female presents to the ED with odynophagia. Very difficult and painful to swallow with appreciating spastic esophagitis clinically. She is likely refluxing at nighttime. She is aware of heartburn a good portion of the day. This is in spite of being on Protonix 40 mg daily and starting Pepcid 20 mg yesterday. Bentyl 20 mg every 6 hours is not brought the spastic pain under control. I am going to have routine labs performed. She will receive D5 normal saline at open while here since she has not ate or drank much the last [address] chest will be done first and then plan will be to do an esophagram over in the x-ray department. - Re-Assessments/Exams Free Text/Narrative Re-Assessment/Exam: 10/31/20 14:37 CT of the chest was completed without contrast. Contrast was appreciated within the esophagus. Bilateral breast prostheses are appreciated. Thoracic aorta shows slight ectasia of the ascending aorta with AP dimension of 3.1 cm. Descending aorta is normal. No mediastinal or hilar mass is seen. No pericardial thickening is seen. Visualized portion of the upper abdominal structures show no discrete abnormalities. No axillary adenopathy is seen. Small pleural-based nodule is noted within the right upper lung measuring 4 mm. Minimal atelectasis or scar is seen within the left base. Lungs otherwise are clear. Bone window settings were reviewed which show slight scattered degenerative change within the spine. No acute osseous abnormalities are appreciated. Patient is a non-smoker and therefore no further follow-up of the nodule is indicated. 10/31/20 14:39 White count was 4.80 with 67% neutrophils and 24% lymphocytes. Hemoglobin 13.5 with hematocrit of 40.8. Platelet count 145,000 low normal. D- dimer is 0.21. Sodium 142 with a potassium of 4.4. Chloride 102 with a bicarb of 29. Anion gap is 15.4. BUN was 12 with a creatinine of 0.9 and a GFR greater than 60. Glucose 111. Calcium 9.3. Liver function normal. Troponin I less than 0.017 C-reactive protein less than 0.2. Total protein 7.6 with an albumin fraction of 4.2.I was present for the patient to have a esophagogram carried out in the radiology department. The esophagus functioned normally with no tertiary spasms. She did not take a good group of contrast media therefore the esophagus was never well distended throughout. No abnormalities were appreciated within the esophagus itself and certainly no signs of obstruction at the gastroesophageal junction. Contrast flowed easily into the stomach. She does have a very small hiatal hernia. I believe the patient's current pain syndrome is secondary to esophagitis. She has Bentyl tablets at home in which may be taken 1 tablet every 6 hours to relieve spasm of the esophagus. Going to place her on Pepcid twice daily morning and bedtime and Protonix to be taken at bedtime as well 40 mg. I am going to place her on Carafate suspension 1 g half hour before meals and at bedtime for the next 5 days. If these symptoms do not markedly improve in that timeframe she will need an upper GI endoscopy. Departure - Departure Time of Disposition: 15:04 Disposition: Home, Self-Care 01 Condition: Fair Clinical Impression: Diffuse esophageal spasm GERD with esophagitis Qualifiers: Esophagitis bleeding: without hemorrhage Qualified Code(s): K21.00 - Gastro- esophageal reflux disease with esophagitis, without bleeding - Discharge Information *PRESCRIPTION DRUG MONITORING PROGRAM REVIEWED*: Not Applicable *COPY OF PRESCRIPTION DRUG MONITORING REPORT IN PATIENT EMILE: Not Applicable Prescriptions: Sucralfate [Carafate] 1 gm PO QID #200 ml Instructions: Esophageal Spasm, Food Choices for Gastroesophageal Reflux Disease, Adult Referrals: Jaleesa Hoffman MD [Primary Care Provider] - Forms: ED Department Discharge Additional Instructions: Evaluation in the emergency room this morning in regards to persistent pain with attempts to swallow which we call odynophagia. You are well aware of a spasm type pain with initiation of swallowing and aware of gastroesophageal reflux worse as of late. An esophagram was done in the x-ray department and did not reveal any abnormalities of the food pipe particular no signs of obstruction. CT chest also proved to be completely normal. It is my impression that you are developing esophageal spasm secondary to reflux disease likely occurring at nighttime while asleep with reflux into the lower one third of the food pipe which will often cause significant spasm of the food pipe even all the way up into the neck and throat. At present I wish you to start Pepcid 20 mg in the morning and 20 mg at bedtime with Protonix 40 mg at bedtime. Pepcid should be continued for a minimum of 10 days and if feeling better then you could stop it. Continue the Prilosec daily at bedtime. New medication will be Carafate suspension which is almost like at shock. It coats the lining of the food pipe and heels ulcers. It should be taken 10 mils 1/2-hour before meals and at bedtime for the next 5 days. Continue diet as tolerated. May use Bentyl 20 mg tablet every 6 hours as needed while you are experiencing could spasm of your esophagus as this will ease it after about an hour of taking the tablet. If you continue to have symptoms past 5 days then an upper GI endoscopy is in order. Follow-up with your primary care provider to arrange this test with a surgeon or cafeteria worker Sepsis Event Note (ED) - Evaluation Sepsis Screening Result: No Definite Risk - Focused Exam Vital Signs: Vital Signs Temp Pulse Resp BP Pulse Ox 10/31/20 12:34 36.5 C 72 20 133/94 H 100 - My Orders Last 24 Hours: My Active Orders 10/31/20 13:15 Dextrose 5%-Lactated Ringers 1,000 ml IV ASDIRECTED - Assessment/Plan Last 24 Hours: My Active Orders 10/31/20 13:15 Dextrose 5%-Lactated Ringers 1,000 ml IV ASDIRECTED
[2020-10-31] MEDS ORDERED: Dextrose 5%-Lactated Ringers 1,000 ML IV SCH (13:15)
[2020-10-31] MEDS ORDERED: Barium Sulfate w/v 2.1% Oral Susp 450 ML Bottle PO ONE (13:24)
--- NOTE | 2020-10-31 14:18 | CT ---
CT chest Technique: Multiple axial sections through the chest were obtained. Intravenous contrast was not utilized. Oral contrast has been given. Reconstructed coronal and sagittal images were obtained. Findings: Contrast is noted within the esophagus. Bilateral breast prostheses are noted. Thoracic aorta shows slight ectasia of the ascending aorta with AP dimension of 3.1 cm. Descending aorta is normal. No mediastinal or hilar mass is seen. No pericardial thickening is seen. Visualized portion of the upper abdominal structures show no discrete abnormality. No axillary adenopathy is seen. Small pleural-based nodule is noted within the right posterior upper lung measuring 4 mm. Minimal atelectasis or scar is seen within the left base. Lungs otherwise are clear. Bone window settings were reviewed which show slight scattered degenerative change within the spine. No acute osseous abnormality is appreciated. Impression: 1. 4 mm nodule which is pleural-based within the posterior right upper lung. If patient is a smoker, recommend repeat noncontrast study in one year. If patient is not a smoker, this can be ignored. 2. Contrast noted within the esophagus. 3. Minimal ectasia of the ascending aorta. 4. Nothing acute is otherwise seen. Diagnostic code #3
[2020-10-31] MEDS ORDERED: Barium Sulfate 98% Powder for Susp 340 GM Bottle PO ONE (14:23)
--- NOTE | 2020-10-31 14:54 | CR ---
Esophagram: Multiple images were obtained as an esophagram in axial and lateral planes. Patient did not seem to drink a large swallow of barium. Once the barium passed into the esophagus there is normal transit to the stomach. There is no finding of esophageal stricture or mass-effect. Impression: 1. Patient did not seem to drink a large swallow of barium. 2. Other portions of the esophagram study are unremarkable. Diagnostic code #2
== END 2020-10-31 15:30 | disposition home or self-care (01) ==
LOC: JD.ED 12:27
DX: K21.00 Gastro-esophageal reflux disease with esophagitis, without bleeding (principal); K22.4 Dyskinesia of esophagus; Z79.899 Other long term (current) drug therapy
CPT/HCPCS: 36415; 71250; 74220; 80053; 84484; 85025; 85379; 86140; 99284; J7121

== ENCOUNTER 2021-08-22 04:30 | Emergency (ER) | payer BC, MEDICAID | END 2021-08-22 06:15 | disposition home or self-care (01) | LOC: JD.ED 04:30 | DX: M79.604 Pain in right leg (principal) | CPT/HCPCS: 36415; 85610; 85730; 93971-26-RT; 93971-RT; 99284; 99284-25 ==

== ENCOUNTER 2022-08-05 09:34 | Emergency (ER) | payer BC ==
[2022-08-05] MEDS ORDERED: Sodium Chloride 0.9% 10 ML Syringe FLUSH PRN (10:14)
== END 2022-08-05 11:45 | disposition home or self-care (01) ==
LOC: JD.ED 09:34
DX: R07.89 Other chest pain (principal)
CPT/HCPCS: 36415; 71045; 84484; 85379; 93005; 99285; J3490

== ENCOUNTER 2024-05-07 19:28 | Emergency (ER) | payer BC | END 2024-05-07 22:03 | disposition home or self-care (01) | LOC: JD.ED 19:28 | DX: I82.461 Acute embolism and thrombosis of right calf muscular vein (principal); I48.91 Unspecified atrial fibrillation; Z90.710 Acquired absence of both cervix and uterus; Z79.01 Long term (current) use of anticoagulants; Z79.899 Other long term (current) drug therapy | CPT/HCPCS: 93971-26-RT; 93971-RT; 99283; 99284 ==